=== PATIENT | female | born 1965 | race Caucasian/White ===

== ENCOUNTER 2017-06-19 02:00 | Inpatient (IN) | payer OTHER ==
[2017-06-19] VITALS (11 sets, daily range): BP systolic 130–145; BP diastolic 60–67; PULSE 80–126; RESP 11–19; TEMP 97.6–98.7; O2SAT 99–100
[~2017-06-19] VITALS: Ht 175.3 cm; Wt 64.5 kg
[2017-06-19] MEDS: DEXT 5%-NACL 0.9% 1000 ML INJ 1,000 ML IV SCH ×4 (02:47→17:06)
[2017-06-19] MEDS ORDERED: SODIUM PHOSPHATE INJ 15 MMOL in SODIUM CHLORIDE 0.9% INJ 100 ML IV PRN (03:00)
[2017-06-19] MEDS ORDERED: POTASSIUM CHLOR 20 MEQ PREMIX 100 ML IV PRN ×6 (03:00)
[2017-06-19] MEDS ORDERED: MISCELLANEOUS NURSING INFORMATION XX SCH (03:00)
[2017-06-19] MEDS ORDERED: INSULIN REGULAR (IV INFUSION) 100 UNITS in SODIUM CHLORIDE 0.9% INJ 99 ML IV PRN ×3 (03:00→18:15)
[2017-06-19] MEDS ORDERED: BISACODYL 10 MG SUPP RECTAL PRN (03:00)
[2017-06-19] MEDS ORDERED: SENNOSIDES 8.6 MG TAB PO PRN (03:00)
[2017-06-19] MEDS ORDERED: SODIUM BICARBONATE 8.4% SOLN 50 MEQ/50 ML VIAL IV PUSH PRN ×2 (03:00)
[2017-06-19] MEDS ORDERED: LACTULOSE SYRUP 20 GM/30 ML CUP PO PRN (03:00)
[2017-06-19] MEDS ORDERED: INSULIN HUMAN REGULAR 1,000 UNITS/10 ML VIAL IV PUSH ONE (03:00)
[2017-06-19] MEDS ORDERED: RESP: ALBUTEROL 2.5 MG/IPRATROPIUM 0.5 MG NEB (PRN) INH (03:00)
[2017-06-19] MEDS ORDERED: TEMAZEPAM 15 MG CAP PO PRN (03:00)
[2017-06-19] MEDS ORDERED: ACETAMINOPHEN 325 MG TAB PO PRN (03:00)
[2017-06-19] MEDS ORDERED: CHLORHEXIDINE GLUCONATE 2 % 1 PACK (2 CLOTHS) TOP PRN (03:00)
[2017-06-19] MEDS ORDERED: POTASSIUM CHLOR 40 MEQ PREMIX 100 ML IV PRN ×2 (03:00)
[2017-06-19] MEDS ORDERED: MAGNESIUM HYDROXIDE SUSP 30 ML CUP PO PRN (03:00)
[2017-06-19] MEDS: SODIUM CHLOR 0.9% 1000 ML INJ 1,000 ML IV SCH ×4 (03:07→14:47)
[2017-06-19] MEDS ORDERED: MORPHINE SULFATE 2 MG/ML INJ IV PUSH PRN (03:15)
[2017-06-19] MEDS: CHLORHEXIDINE GLUCONATE 2 % 1 PACK (2 CLOTHS) TOP SCH (04:00)
[2017-06-19 04:07] LABS: AUTOMATED NEUTROPHIL # 14.8 TH/MM3 (1.8-7.7); BASOPHIL % 0.2 % (0.0-2.0); HEMOGLOBIN 15.8 GM/DL (11.6-15.3); LYMPHOCYTE # 0.8 TH/MM3 (1.0-4.8); MEAN CELL VOLUME 95.6 FL (80.0-100.0); MEAN CORPUSCULAR HEMOGLOBIN 29.7 PG (27.0-34.0); MEAN CORPUSCULAR HGB CONC 31.1 % (32.0-36.0); MEAN PLATELET VOLUME 7.8 FL (7.0-11.0); MONO % 5.4 % (0.0-8.0); MONOCYTE # 0.9 TH/MM3 (0-0.9); NEUT % 89.4 % (16.0-70.0); PLATELET COUNT 307 TH/MM3 (150-450); RED BLOOD COUNT 5.33 MIL/MM3 (4.00-5.30); RED CELL DISTRIBUTION WIDTH 14.7 % (11.6-17.2); WHITE BLOOD COUNT 16.6 TH/MM3 (4.0-11.0)
[2017-06-19] MEDS ORDERED: hydrALAZINE HCL 20 MG/ML VIAL IV PUSH PRN (04:30)
--- NOTE | 2017-06-19 04:32 | HHI.HP ---
HPI Service Critical Care Medicine Primary Care Physician No Primary Care Physician Admission Diagnosis Diagnosis: Travel History International Travel<30 Days: No Contact w/Intl Traveler <30 Da: No Traveled to Known Affected Are: No History of Present Illness 52-year-old female with a insulin-dependent type 2 diabetes mellitus for 25 years, she ran out all her insulin few days ago and presents with the three-day history of vomiting nausea and poor appetite. Patient states she has not taken any insulin since vomiting and nausea began the day after her insulin ran out. She thought she had the flu and she has no history of prior DKA. Denies any other recent illness or fever, admits mild subjective dyspnea but denies any chest pain as well as any other symptoms of infection. Review of Systems Constitutional: COMPLAINS OF: Fatigue, Change in appetite, DENIES: Diaphoretic episodes, Fever, Weight gain, Weight loss, Chills, Dizziness, Night Sweats Endocrine: DENIES: Abnorml menstrual pattern, Heat/cold intolerance, Polydipsia , Polyuria, Polyphagia Eyes: DENIES: Blurred vision, Diplopia, Eye inflammation, Eye pain, Vision loss , Photosensitivity, Double Vision Ears, nose, mouth, throat: DENIES: Tinnitus, Hearing loss, Vertigo, Nasal discharge, Oral lesions, Throat pain, Hoarseness, Ear Pain, Running Nose, Epistaxis, Sinus Pain, Toothache, Odynophagia Respiratory: COMPLAINS OF: Shortness of breath, DENIES: Apneas, Cough, Snoring , Wheezing, Hemoptysis, Sputum production Cardiovascular: DENIES: Chest pain, Palpitations, Syncope, Dyspnea on Exertion , PND, Lower Extremity Edema, Orthopnea, Claudication Gastrointestinal: COMPLAINS OF: Abdominal pain, Nausea, Vomiting, Anorexia, DENIES: Black stools, Bloody stools, Constipation, Diarrhea, Difficulty Swallowing Genitourinary: DENIES: Abnormal vaginal bleeding, Dysmenorrhea, Dyspareunia, Sexual dysfunction, Urinary frequency, Urinary incontinence, Urgency, Hematuria , Dysuria, Nocturia, Vaginal discharge Musculoskeletal: DENIES: Joint pain, Muscle aches, Stiffness, Joint Swelling, Back pain, Neck pain Integumentary: DENIES: Abnormal pigmentation, Pruritus, Rash, Nail changes, Breast masses, Breast skin changes, Nipple discharge Hematologic/lymphatic: DENIES: Bruising, Lymphadenopathy Immunologic/allergic: DENIES: Eczema, Urticaria Neurologic: DENIES: Abnormal gait, Headache, Localized weakness, Paresthesias, Seizures, Speech Problems, Tremor, Poor Balance Psychiatric: DENIES: Anxiety, Confusion, Mood changes, Depression, Hallucinations, Agitation, Suicidal Ideation, Homicidal Ideation, Delusions Past Family Social History Allergies: Coded Allergies: No Known Allergies (Unverified , 06/18/17) Past Medical History Asthma: Yes Diabetes: Yes Hypertension: Yes Past Surgical History None Active Ordered Medications Current Medications Medications (Trade) Dose Ordered Sig/Tamie Route PRN Reason Start Time Stop Time Status Last Admin Dose Admin Sodium Chloride 1,000 ml @ 250 mls/hr Q4H IV 06/19/17 02:47 06/19/17 03:07 Dextrose/Sodium Chloride 1,000 ml @ 200 mls/hr Q5H IV 06/19/17 02:47 Potassium Chloride 100 ml @ 100 mls/hr Q1H PRN IV SEE LABEL COMMENTS 06/19/17 03:00 Potassium Chloride 100 ml @ 50 mls/hr Q2H PRN IV SEE LABEL COMMENTS 06/19/17 03:00 Potassium Chloride 100 ml @ 100 mls/hr Q1H PRN IV SEE LABEL COMMENTS 06/19/17 03:00 Potassium Chloride 100 ml @ 100 mls/hr Q1H PRN IV SEE LABEL COMMENTS 06/19/17 03:00 Potassium Chloride 100 ml @ 50 mls/hr Q2H PRN IV SEE LABEL COMMENTS 06/19/17 03:00 Potassium Chloride 100 ml @ 50 mls/hr Q2H PRN IV SEE LABEL COMMENTS 06/19/17 03:00 Potassium Chloride 100 ml @ 50 mls/hr Q2H PRN IV SEE LABEL COMMENTS 06/19/17 03:00 Potassium Chloride 100 ml @ 50 mls/hr Q2H PRN IV SEE LABEL COMMENTS 06/19/17 03:00 Sodium Bicarbonate (Sodium Bicarbonate 8.4% Inj) 100 meq UNSCH PRN IV PUSH SEE LABEL COMMENTS 06/19/17 03:00 Sodium Bicarbonate (Sodium Bicarbonate 8.4% Inj) 50 meq UNSCH PRN IV PUSH SEE LABEL COMMENTS 06/19/17 03:00 Sodium Phosphate 15 mmol/Sodium Chloride 105 ml @ 25 mls/hr UNSCH PRN IV SEE LABEL COMMENTS 06/19/17 03:00 Miscellaneous Information 1 Q361D XX 06/19/17 03:00 06/19/17 03:00 Chlorhexidine Gluconate (Chlorhexidine 2% Cloth) 3 pack Taper DAILY@04 TOP 06/19/17 04:00 06/15/18 03:59 06/19/17 04:00 Chlorhexidine Gluconate (Chlorhexidine 2% Cloth) 3 pack UNSCH PRN TOP HYGIENIC CARE 06/19/17 03:00 Acetaminophen (Tylenol) 650 mg Q6H PRN PO PAIN 1-5 AND/OR FEVER >101F 06/19/17 03:00 Morphine Sulfate (Morphine Inj) 2 mg Q2H PRN IV PUSH PAIN SCALE 6 TO 10 06/19/17 03:15 06/19/17 03:12 Famotidine (Pepcid Inj) 20 mg Q12HR IV PUSH 06/19/17 09:00 Temazepam (Restoril) 15 mg HS PRN PO INSOMNIA 06/19/17 03:00 Albuterol/ Ipratropium (Duoneb Neb) 1 ampule Q2HR NEB PRN INH WHEEZING 06/19/17 03:00 Heparin Sodium (Porcine) (Heparin Inj) 5,000 units Q8H SQ 06/19/17 05:00 Senna/Docusate Sodium (Rachel-Colace) 1 tab BID PO 06/19/17 09:00 Magnesium Hydroxide (Milk Of Magnesia Liq) 30 ml Q12H PRN PO Mild constipation 06/19/17 03:00 Sennosides (Senokot) 17.2 mg Q12H PRN PO Moderate constipation 06/19/17 03:00 Bisacodyl (Dulcolax Supp) 10 mg DAILY PRN RECTAL SEVERE CONSITIPATION 06/19/17 03:00 Lactulose (Lactulose Liq) 30 ml DAILY PRN PO SEVERE CONSITIPATION 06/19/17 03:00 Insulin Human Regular 100 units/ Sodium Chloride 100 ml @ 6.45 mls/hr TITRATE PRN IV Blood Glucose Control 06/19/17 03:30 06/19/17 04:02 Family History No family history of early coronary artery disease Social History Denies alcohol, tobacco, or illicit drug abuse Physical Exam Vital Signs Vital Signs Date Time Temp Pulse Resp B/P (MAP) Pulse Ox O2 Delivery O2 Flow Rate FiO2 06/19/17 02:10 122 Physical Exam GENERAL: Middle-aged adult female in mild acute distress rate with respiratory rate at 30s, lethargic SKIN: Warm and dry. HEAD: Atraumatic. Normocephalic. EYES: Pupils equal and round. No scleral icterus. No injection or drainage. ENT: No nasal bleeding or discharge. . Membranes dry NECK: Trachea midline. No JVD. CARDIOVASCULAR: Regular rate and rhythm. Tachycardic RESPIRATORY: No accessory muscle use. Clear to auscultation. Breath sounds equal bilaterally. Tachypnea GASTROINTESTINAL: Abdomen soft, non-tender, nondistended. Hepatic and splenic margins not palpable. MUSCULOSKELETAL: Extremities without clubbing, cyanosis, or edema. No obvious deformities. NEUROLOGICAL: Awake and alert. No obvious cranial nerve deficits. Motor grossly within normal limits. Five out of 5 muscle strength in the arms and legs. Normal speech. Laboratory Laboratory Tests Test 06/19/17 03:20 White Blood Count 16.6 Red Blood Count 5.33 Hemoglobin 15.8 Hematocrit 51.0 Mean Corpuscular Volume 95.6 Mean Corpuscular Hemoglobin 29.7 Mean Corpuscular Hemoglobin Concent 31.1 Red Cell Distribution Width 14.7 Platelet Count 307 Mean Platelet Volume 7.8 Neutrophils (%) (Auto) 89.4 Lymphocytes (%) (Auto) 5.0 Monocytes (%) (Auto) 5.4 Eosinophils (%) (Auto) 0.0 Basophils (%) (Auto) 0.2 Neutrophils # (Auto) 14.8 Lymphocytes # (Auto) 0.8 Monocytes # (Auto) 0.9 Eosinophils # (Auto) 0.0 Basophils # (Auto) 0.0 CBC Comment DIFF FINAL Differential Comment Result Diagram: 06/19/17 0320 Septic Shock Reassessment Septic shock perfusion: reassessment completed Caprini VTE Risk Assessment Caprini VTE Risk Assessment: Mod/High Risk (score >= 2) Caprini Risk Assessment Model Point Value = 1 Point Value = 2 Point Value = 3 Point Value = 5 Age 41-60 Minor surgery BMI > 25 kg/m2 Swollen legs Varicose veins or History of unexplained or recurrent spontaneous Oral contraceptives or hormone replacement Sepsis (< 1 month) Serious lung disease, including pneumonia (< 1 month) Abnormal pulmonary function Acute myocardial infarction Congestive heart failure (< 1 month) History of inflammatory bowel disease Medical patient at bed rest Age 61-74 Arthroscopic surgery Major open surgery (> 45 min) Laparoscopic surgery (> 45 min) Malignancy Confined to bed (> 72 hours) Immobilizing plaster cast Central venous access Age >= 75 History of VTE Family history of VTE Factor V Leiden Prothrombin [id number] Lupus anticoagulant Anticardiolipin antibodies Elevated serum homocysteine Heparin-induced thrombocytopenia Other congenital or acquired thrombophilia Stroke (< 1 month) Elective arthroplasty Hip, pelvis, or leg fracture Acute spinal cord injury (< 1 month) Prophylaxis Regimen Total Risk Factor Score Risk Level Prophylaxis Regimen 0-1 Low Early ambulation 2 Moderate Order ONE of the following: *Sequential Compression Device (SCD) *Heparin 5000 units SQ BID 3-4 Higher Order ONE of the following medications: *Heparin 5000 units SQ TID *Enoxaparin/Lovenox 40 mg SQ daily (WT < 150 kg, CrCl > 30 mL/min) *Enoxaparin/Lovenox 30 mg SQ daily (WT < 150 kg, CrCl > 10-29 mL/min) *Enoxaparin/Lovenox 30 mg SQ BID (WT < 150 kg, CrCl > 30 mL/min) AND/OR *Sequential Compression Device (SCD) 5 or more Highest Order ONE of the following medications: *Heparin 5000 units SQ TID (Preferred with Epidurals) *Enoxaparin/Lovenox 40 mg SQ daily (WT < 150 kg, CrCl > 30 mL/min) *Enoxaparin/Lovenox 30 mg SQ daily (WT < 150 kg, CrCl > 10-29 mL/min) *Enoxaparin/Lovenox 30 mg SQ BID (WT < 150 kg, CrCl > 30 mL/min) AND *Sequential Compression Device (SCD) Assessment and Plan Assessment and Plan DKA - Insulin drip per protocol - Frequent electrolytes with replacement - IV fluid hydration - Transition to insulin when anion gap closed Hypertension - Resume home meds when by mouth - Hydralazine when necessary to keep SBP less than 160 Asthma - No acute exacerbation - DuoNeb's when necessary DVT GI prophylaxis - Teds SCDs - Subcutaneous heparin - Pepcid Critical Care: The total critical care time was 35 minutes. Time to perform other separately billable procedures was not included in the critical care time. Gallito Levin MD Jun 19, 2017 4:32 am
[2017-06-19 04:59] LABS: ALBUMIN 4.3 GM/DL (3.4-5.0); ALKALINE PHOSPHATASE 91 U/L (45-117); ALT (GPT) 21 U/L (10-53); AST (GOT) 18 U/L (15-37); BLOOD UREA NITROGEN 11 MG/DL (7-18); CALCIUM 8.9 MG/DL (8.5-10.1); CHLORIDE 104 MEQ/L (98-107); CREATININE 0.83 MG/DL (0.50-1.00); GLOMERULAR FILTRATION RATE 72 ML/MIN (>89); MAGNESIUM 1.9 MG/DL (1.5-2.5); PHOSPHORUS 3.2 MG/DL (2.5-4.9); SODIUM (NA) 134 MEQ/L (136-145); TOTAL BILIRUBIN ADULT 0.4 MG/DL (0.2-1.0); TOTAL PROTEIN 8.1 GM/DL (6.4-8.2); TROPONIN I 0.02 NG/ML (0.02-0.05)
[2017-06-19] MEDS: HEPARIN SODIUM - SQ 10,000 UNITS/ML VIAL SQ SCH ×3 (05:14→20:30)
[2017-06-19 05:30] LABS: GLUCOSE,RANDOM 415 MG/DL (74-106)
--- NOTE | 2017-06-19 05:37 | RADRPT ---
EXAM DATE/TIME: 06/19/2017 03:29 [facility] COMPARISON: No previous studies available for comparison. INDICATIONS : Shortness of breath, possible pulmonary disease. MEDICAL HISTORY : Hypertension. Diabetes mellitus type II. Asthma SURGICAL HISTORY : None. ENCOUNTER: Subsequent ACUITY: 1 day PAIN SCORE: 0/10 LOCATION: Bilateral chest FINDINGS: A single view of the chest demonstrates the lungs to be symmetrically aerated without evidence of mas s, infiltrate or effusion. The cardiomediastinal contours are unremarkable. Osseous structures are intact. CONCLUSION: No active disease. No effusion or pneumothorax. Kin Marks MD on June 19, 2017 at 5:32 Board Certified Radiologist. This report was verified electronically.
--- NOTE | 2017-06-19 08:29 | EKG ---
Date Performed: 06/19/2017 Time Performed: 07:15:14 PTAGE: 52 years EKG: Sinus rhythm NORMAL ECG Compared to prior electrocardiogram, rate has decreased DOCTOR: Scot Perkins Interpretating Date/Time 06/19/2017 08:29:02
[2017-06-19] MEDS: DOCUSATE SODIUM 50 MG/SENNA 8.6 MG TAB PO SCH ×2 (08:36→20:30)
[2017-06-19 08:45] LABS: BICARBONATE 9.5 MEQ/L (21.0-32.0); CREATININE 0.74 MG/DL (0.50-1.00); MAGNESIUM 1.9 MG/DL (1.5-2.5); PHOSPHORUS 1.4 MG/DL (2.5-4.9)
[2017-06-19] MEDS ORDERED: FAMOTIDINE 20 MG/2 ML VIAL IV PUSH SCH (09:00)
--- NOTE | 2017-06-19 12:37 | HHI.CCPN ---
Subjective Remarks/Hospital Course 52-year-old female with a insulin-dependent type 2 diabetes mellitus for 25 years, she ran out all her insulin few days ago and presents with the three-day history of vomiting nausea and poor appetite. Patient states she has not taken any insulin since vomiting and nausea began the day after her insulin ran out. She thought she had the flu and she has no history of prior DKA. Denies any other recent illness or fever, admits mild subjective dyspnea but denies any chest pain as well as any other symptoms of infection Subjective 06/19: Afebrile. Complaining of "burning" lower extremity pain likely diabetic neuropathy. Peers consult. No chest pain, short of breath or abdominal pain currently. Objective Vital Signs Date Time Temp Pulse Resp B/P (MAP) Pulse Ox O2 Delivery O2 Flow Rate FiO2 06/19/17 08:00 97 Intake and Output 06/19/17 06/19/17 06/20/17 08:00 16:00 00:00 Intake Total 1000 ml Balance 1000 ml Result Diagram: 06/19/17 0320 06/19/17 0736 Imaging Last Impressions Chest X-Ray 06/19/17 0000 Signed Impressions: Service Date/Time: June 03:29 - CONCLUSION: No active disease. No effusion or pneumothorax. Kin Marks MD Objective Remarks GENERAL: 52-year-old female resting in bed in no acute distress SKIN: Warm and dry. Some bruising pretibial left lower extremity HEAD: Atraumatic. Normocephalic. EYES: Pupils equal and round. No scleral icterus. No injection or drainage. ENT: No nasal bleeding or discharge. . Membranes dry NECK: Trachea midline. No JVD. CARDIOVASCULAR: Regular rate and rhythm. S1, S2 no S4. Without murmur RESPIRATORY: Essentially clear to auscultation bilaterally without wheezing rales or rhonchi GASTROINTESTINAL: Abdomen soft, non-tender, nondistended. Hypoactive bowel sounds are appreciated MUSCULOSKELETAL: Extremities without noted in peripheral edema. No obvious deformities. NEUROLOGICAL: Awake and alert. No obvious cranial nerve deficits. Motor grossly within normal limits. Five out of 5 muscle strength in the arms and legs. Normal speech. A/P Assessment and Plan Neuro/Psych: Diabetic neuropathy Start pregabalin 25 mg every 8 hours Acetaminophen 650 mg by mouth every 4 hours when necessary fever/pain 1-5 Morphine sulfate 2 mg IV every 2 hours when necessary pain 6-10 CV: Elevated troponin 0.06 Hypertension Should start UBALDO inhibitor if tolerates IV fluids per DKA protocol Recheck EKG/troponin a.m. 06/20 Resp: Asthma As needed albuterol nebs every 2 hours. Dyspnea Nasal cannula to maintain saturations greater than or equal to 92% Incentive spirometry while awake GI: Currently nothing by mouth Famotidine for GI prophylaxis Docusate sodium/senna 1 tablet twice a day for bowel regimen : No indication for Pichardo catheter Endo: IDDM DKA Ketoacidosis Currently on insulin drip at 7.5 units an hour. Recheck acetone level at 1300 hrs. today. Transition to subcutaneous insulin if gap is closed. Currently on D5 normal saline at 200 cc an hour Novulog ? 40 units twice a day according to patient is a home medication regimen. Check hemoglobin A1c, lipid panel and UA Renal: Creatinine currently within normal limits Monitor urine output Accurate I's and O's Heme: Leukocytosis Polycythemia Monitor CBC daily. Follow trends. Polycythemia likely secondary to dehydration ID: Monitor for infection. Check UA FEN: Hypophosphatemia Replace electrolytes per ICU electrolyte protocol MSK: Ativan/PT evaluate and treat Access - Utilize peripheral IV. Central line if indicated Prophylaxis - GI - famotidine - DVT - SCD/heparin subcutaneous 15 additional minutes follow-up time Patient is stable from a critical care medicine standpoint. Assign care to hospitalist in a.m. 06/20. Okay to transfer out of ICU. Currently transitioned off insulin drip Dov Green MD Jun 19, 2017 12:37
[2017-06-19] MEDS ORDERED: RESP: ALBUTEROL 2.5 MG/3 ML NEB (PRN) NEB (12:45)
[2017-06-19] MEDS: PREGABALIN 25 MG CAP PO SCH ×2 (14:09→20:29)
[2017-06-19 15:37] LABS: BICARBONATE 16.7 MEQ/L (21.0-32.0); BLOOD UREA NITROGEN 8 MG/DL (7-18); CHLORIDE 114 MEQ/L (98-107); CREATININE 0.67 MG/DL (0.50-1.00); GLOMERULAR FILTRATION RATE 92 ML/MIN (>89); GLUCOSE,RANDOM 160 MG/DL (74-106); MAGNESIUM 1.6 MG/DL (1.5-2.5); SODIUM (NA) 140 MEQ/L (136-145)
[2017-06-19] MEDS ORDERED: GLUCAGON 1 MG/ML VIAL OTHER PRN (17:15)
[2017-06-19] MEDS ORDERED: DEXTROSE 50% IN WATER 50 ML VIAL(D50) IV PUSH PRN (17:15)
[2017-06-19] MEDS ORDERED: DC Insulin drip 2 hrs post basal insulin dose ONE (17:15)
[2017-06-19] MEDS ORDERED: DC previous DKA orders (HMC 1917) ONE (17:15)
[2017-06-19 17:25] LABS: HEMOGLOBIN A1C 15.2 % (4.3-6.0)
[2017-06-19] MEDS: INSULIN DETEMIR 100 UNITS/ML VIAL SQ SCH (18:00)
[2017-06-19 20:07] LABS: BILIRUBIN, URINE NEG (NEG); BLOOD, URINE TRACE (NEG); GLUCOSE,URINE 1000 mg/dL (NEG); KETONE, URINE 40 mg/dL (NEG); MUCUS URINE FEW /lpf (OCC); NITRITE,URINE NEG (NEG); SQUAMOUS EPITHELIAL CELL URINE 1 /hpf (0-5); URINE COLOR YELLOW (YELLW/STRAW); URINE LEUKOCYTE ESTERASE SMALL (NEG)
[2017-06-19 20:26] LABS: BICARBONATE 17.2 MEQ/L (21.0-32.0); CALCIUM 8.6 MG/DL (8.5-10.1); CREATININE 0.58 MG/DL (0.50-1.00); MAGNESIUM 1.7 MG/DL (1.5-2.5); PHOSPHORUS 1.5 MG/DL (2.5-4.9)
[2017-06-19] MEDS: FAMOTIDINE 20 MG TAB PO SCH (20:29)
[2017-06-19] MEDS: INSULIN ASPART SUPPLEMENTAL SCALE SQ SCH (20:30)
[2017-06-19] MEDS ORDERED: POTASSIUM CHLORIDE 25 MEQ EFFERVESCENT TAB PO ONE (21:30)
[2017-06-20] VITALS (9 sets, daily range): BP systolic 117–142; BP diastolic 62–80; PULSE 79–97; RESP 16–18; TEMP 96.8–98.3; O2SAT 95–100
[2017-06-20] MEDS: CHLORHEXIDINE GLUCONATE 2 % 1 PACK (2 CLOTHS) TOP SCH (03:02)
[2017-06-20] MEDS: HEPARIN SODIUM - SQ 10,000 UNITS/ML VIAL SQ SCH ×3 (05:11→20:35)
[2017-06-20] MEDS: INSULIN DETEMIR 100 UNITS/ML VIAL SQ SCH ×2 (05:11→18:07)
[2017-06-20 05:47] LABS: AUTOMATED NEUTROPHIL # 4.9 TH/MM3 (1.8-7.7); BASOPHIL # 0.1 TH/MM3 (0-0.2); EOSINOPHIL % 0.4 % (0.0-4.0); HEMATOCRIT 41.3 % (35.0-46.0); HEMOGLOBIN 13.6 GM/DL (11.6-15.3); LYMPH % 28.1 % (9.0-44.0); LYMPHOCYTE # 2.2 TH/MM3 (1.0-4.8); MEAN CELL VOLUME 91.1 FL (80.0-100.0); MEAN PLATELET VOLUME 7.8 FL (7.0-11.0); MONO % 7.2 % (0.0-8.0); MONOCYTE # 0.6 TH/MM3 (0-0.9); NEUT % 63.3 % (16.0-70.0); PLATELET COUNT 243 TH/MM3 (150-450); RED BLOOD COUNT 4.53 MIL/MM3 (4.00-5.30); WHITE BLOOD COUNT 7.8 TH/MM3 (4.0-11.0)
[2017-06-20] MEDS: PREGABALIN 25 MG CAP PO SCH ×3 (05:59→20:35)
[2017-06-20 06:15] LABS: BICARBONATE 14.7 MEQ/L (21.0-32.0); BLOOD UREA NITROGEN 8 MG/DL (7-18); CALCIUM 8.9 MG/DL (8.5-10.1); CHLORIDE 107 MEQ/L (98-107); CREATININE 0.57 MG/DL (0.50-1.00); GLUCOSE,RANDOM 282 MG/DL (74-106); MAGNESIUM 1.9 MG/DL (1.5-2.5); SODIUM (NA) 136 MEQ/L (136-145)
[2017-06-20 06:17] LABS: CHOLESTEROL 188 MG/DL (120-200); PHOSPHORUS 1.5 MG/DL (2.5-4.9); TRIGLYCERIDES 220 MG/DL (42-150)
[2017-06-20 06:21] LABS: HDL CHOLESTEROL 48.2 MG/DL (40.0-60.0); LDL CHOLESTEROL 96 MG/DL (0-99); TROPONIN I 0.03 NG/ML (0.02-0.05)
[2017-06-20] MEDS: FAMOTIDINE 20 MG TAB PO SCH ×2 (08:42→20:35)
[2017-06-20] MEDS: INSULIN ASPART SUPPLEMENTAL SCALE SQ SCH ×4 (08:42→20:35)
[2017-06-20] MEDS: DOCUSATE SODIUM 50 MG/SENNA 8.6 MG TAB PO SCH ×2 (08:42→20:35)
[2017-06-20] MEDS: INSULIN ASPART 1,000 UNITS/10 ML VIAL SQ SCH ×3 (08:42→17:13)
[2017-06-20] MEDS ORDERED: POTASSIUM CHLORIDE 20 MEQ PWD PACKET PO ONE (09:15)
--- NOTE | 2017-06-20 14:32 | HHI.PR ---
Subjective Remarks No acute distress. Patient complains of no abdominal pain. Lipase is elevated above 3000. Patient is out of DKA but blood sugars have remained high and anion gap has been increasing since cessation of IV insulin. Further adjustments in insulins are needed for better control. Objective Vital Signs Date Time Temp Pulse Resp B/P (MAP) Pulse Ox O2 Delivery O2 Flow Rate FiO2 06/20/17 09:32 96 06/20/17 08:00 97.7 81 18 137/76 (96) 100 06/20/17 04:20 96.8 94 17 117/62 (80) 95 06/20/17 01:20 97.4 84 18 142/66 (91) 99 06/20/17 00:00 97 06/20/17 00:00 98.3 97 16 129/64 (85) 100 06/19/17 22:00 93 06/19/17 20:00 98.4 97 19 145/67 (93) 100 06/19/17 20:00 97 06/19/17 20:00 100 21 06/19/17 16:22 19 06/19/17 16:00 98.7 80 12 130/60 (83) 100 06/19/17 16:00 80 I/O 06/19/17 06/19/17 06/19/17 06/20/17 06/20/17 06/20/17 07:00 15:00 23:00 07:00 15:00 23:00 Intake Total 1000 ml 2052 ml 360 ml Output Total 500 ml Balance 1000 ml 1552 ml 360 ml Intake Oral 360 ml IV Total 1000 ml 2052 ml Output Urine Total 500 ml # Voids 2 2 1 # Bowel Movements 1 0 Result Diagram: 06/20/17 0447 06/20/17 0447 Objective Remarks GENERAL: NAD, A&Ox3 HEAD: Normocephalic. NECK: Supple, trachea midline. No lymphadenopathy. EYES: No scleral icterus. No injection or drainage. CARDIOVASCULAR: Regular rate and rhythm without murmurs, gallops, or rubs. RESPIRATORY: Breath sounds equal bilaterally. No accessory muscle use. GASTROINTESTINAL: Abdomen soft, non-tender, nondistended. MUSCULOSKELETAL: No cyanosis, or edema. SKIN: Warm and dry. NEURO: No focal neurological deficitis. A/P Problem List: (1) DKA (diabetic ketoacidoses) ICD Code: E13.10 - Other specified diabetes mellitus with ketoacidosis without coma (2) Pancreatitis ICD Code: K85.90 - Acute pancreatitis without necrosis or infection, unspecified (3) Hypokalemia ICD Code: E87.6 - Hypokalemia Assessment and Plan 52-year-old female admitted secondary to DKA DKA Type 1 diabetes mellitus Continue to monitor blood sugars Continue to monitor anion gap Transition back to home dosings of insulin Adjust insulin as needed Pancreatitis Follow lipase Currently patient is asymptomatic Hypokalemia Hypophosphatemia Replace and monitor till stable Etiology is likely related to insulin administration Hypertension Blood pressure stable on present treatment Follow blood pressures Asthma Continue as needed albuterol Incentive spirometry Monitor clinically for any exacerbation DVT prophylaxis Heparin Shad Fields MD Jun 20, 2017 14:32
[2017-06-20 14:53] LABS: HEMOGLOBIN A1C 14.8 % (4.3-6.0)
[2017-06-21] VITALS: BP 116/70; PULSE 99; RESP 18; TEMP 97.6; O2SAT 94
[2017-06-21] MEDS: CHLORHEXIDINE GLUCONATE 2 % 1 PACK (2 CLOTHS) TOP SCH (04:00)
[2017-06-21] MEDS: HEPARIN SODIUM - SQ 10,000 UNITS/ML VIAL SQ SCH ×2 (05:24→13:00)
[2017-06-21] MEDS: PREGABALIN 25 MG CAP PO SCH ×2 (05:24→13:00)
[2017-06-21] MEDS: INSULIN DETEMIR 100 UNITS/ML VIAL SQ SCH ×2 (06:00→08:29)
[2017-06-21 06:10] LABS: AUTOMATED NEUTROPHIL # 2.6 TH/MM3 (1.8-7.7); BASOPHIL % 0.7 % (0.0-2.0); EOSINOPHIL # 0.2 TH/MM3 (0-0.4); EOSINOPHIL % 3.5 % (0.0-4.0); HEMATOCRIT 38.3 % (35.0-46.0); HEMOGLOBIN 13.3 GM/DL (11.6-15.3); LYMPHOCYTE # 2.4 TH/MM3 (1.0-4.8); MEAN CELL VOLUME 88.8 FL (80.0-100.0); MEAN CORPUSCULAR HEMOGLOBIN 30.7 PG (27.0-34.0); MEAN CORPUSCULAR HGB CONC 34.6 % (32.0-36.0); MEAN PLATELET VOLUME 7.4 FL (7.0-11.0); MONO % 9.5 % (0.0-8.0); MONOCYTE # 0.5 TH/MM3 (0-0.9); NEUT % 45.3 % (16.0-70.0); PLATELET COUNT 236 TH/MM3 (150-450); RED BLOOD COUNT 4.32 MIL/MM3 (4.00-5.30); RED CELL DISTRIBUTION WIDTH 14.1 % (11.6-17.2); WHITE BLOOD COUNT 5.8 TH/MM3 (4.0-11.0)
[2017-06-21 06:39] LABS: ALBUMIN 2.9 GM/DL (3.4-5.0); BICARBONATE 29.8 MEQ/L (21.0-32.0); BLOOD UREA NITROGEN 8 MG/DL (7-18); CALCIUM 8.7 MG/DL (8.5-10.1); CHLORIDE 105 MEQ/L (98-107); CREATININE 0.45 MG/DL (0.50-1.00); GLOMERULAR FILTRATION RATE 146 ML/MIN (>89); GLUCOSE,RANDOM 92 MG/DL (74-106); MAGNESIUM 1.9 MG/DL (1.5-2.5); SODIUM (NA) 141 MEQ/L (136-145)
[2017-06-21 06:41] LABS: ALT (GPT) 16 U/L (10-53); AST (GOT) 11 U/L (15-37); PHOSPHORUS 2.7 MG/DL (2.5-4.9)
[2017-06-21 06:43] LABS: ALKALINE PHOSPHATASE 56 U/L (45-117); TOTAL BILIRUBIN ADULT 0.3 MG/DL (0.2-1.0); TOTAL PROTEIN 5.9 GM/DL (6.4-8.2)
[2017-06-21 07:53] VITALS: BP 144/78; PULSE 78; RESP 18; TEMP 97.7; O2SAT 98
[2017-06-21] MEDS: INSULIN ASPART 1,000 UNITS/10 ML VIAL SQ SCH ×2 (08:00→12:00)
[2017-06-21] MEDS: FAMOTIDINE 20 MG TAB PO SCH (08:00)
[2017-06-21] MEDS: DOCUSATE SODIUM 50 MG/SENNA 8.6 MG TAB PO SCH (08:00)
[2017-06-21] MEDS: INSULIN ASPART SUPPLEMENTAL SCALE SQ SCH ×2 (08:00→12:00)
[2017-06-21 11:16] VITALS: BP 136/66; PULSE 84; RESP 18; TEMP 96.9; O2SAT 98
--- NOTE | 2017-06-21 11:23 | HHI.PR ---
Subjective Remarks Patient seen and examined this morning. Temperature 96.9, pulse 84, respiratory rate 18, blood pressure 136/66, pulse ox 98 on room air. Patient reports that she is back to baseline. She states that she was unable to get her insulin due to funds and lack of refills. That is the cause of her DKA. At this time she wishes to get out of the hospital. She agrees to obtaining her insulin upon leaving the hospital. Objective Vitals Vital Signs Date Time Temp Pulse Resp B/P (MAP) Pulse Ox O2 Delivery O2 Flow Rate FiO2 06/21/17 11:16 96.9 84 18 136/66 (89) 98 06/21/17 09:02 16 06/21/17 07:53 97.7 78 18 144/78 (100) 98 06/21/17 00:00 97.6 99 18 116/70 (85) 94 06/20/17 21:35 18 06/20/17 20:00 97.7 92 17 135/71 (92) 97 06/20/17 17:36 96 21 06/20/17 16:00 97.7 79 18 140/75 (96) 100 06/20/17 12:00 97.3 80 17 132/80 (97) 100 I/O 06/20/17 06/20/17 06/20/17 06/21/17 06/21/17 06/21/17 07:00 15:00 23:00 07:00 15:00 23:00 Intake Total 360 ml 500 ml 720 ml 480 ml Balance 360 ml 500 ml 720 ml 480 ml Intake Oral 360 ml 500 ml 720 ml 480 ml # Voids 1 4 2 1 # Bowel Movements 0 Result Diagram: 06/21/17 0525 06/21/17 0525 Imaging Last Impressions Chest X-Ray 06/19/17 0000 Signed Impressions: Service Date/Time: June 03:29 - CONCLUSION: No active disease. No effusion or pneumothorax. Kin Marks MD Objective Remarks GEN: Well-developed, well-nourished patient. No acute distress. CV: Regular rate and rhythm without obvious murmurs LUNGS: Clear to auscultation bilaterally. Normal respiratory effort. No wheezes , rales, rhonchi. GI: Soft, nontender, nondistended. No palpable masses. Bowel sounds WNL. EXT: No edema. NEURO/PSYCH: Afocal. Awake, alert, and oriented x3. Appropriate insight and judgment. Medications and IVs Current Medications Medications (Trade) Dose Ordered Sig/Tamie Route Start Time Stop Time Status Last Admin Miscellaneous Information 1 Q361D XX 06/19/17 03:00 06/19/17 03:00 (Chlorhexidine 2% Cloth) 3 pack Taper DAILY@04 TOP 06/19/17 04:00 06/15/18 03:59 06/19/17 04:00 (Chlorhexidine 2% Cloth) 3 pack UNSCH PRN TOP 06/19/17 03:00 (Tylenol) 650 mg Q6H PRN PO 06/19/17 03:00 06/21/17 08:00 (Morphine Inj) 2 mg Q2H PRN IV PUSH 06/19/17 03:15 06/19/17 03:12 (Restoril) 15 mg HS PRN PO 06/19/17 03:00 (Heparin Inj) 5,000 units Q8H SQ 06/19/17 05:00 06/21/17 05:24 (Rachel-Colace) 1 tab BID PO 06/19/17 09:00 06/21/17 08:00 (Milk Of Magnesia Liq) 30 ml Q12H PRN PO 06/19/17 03:00 (Senokot) 17.2 mg Q12H PRN PO 06/19/17 03:00 (Dulcolax Supp) 10 mg DAILY PRN RECTAL 06/19/17 03:00 (Lactulose Liq) 30 ml DAILY PRN PO 06/19/17 03:00 (Apresoline Inj) 20 mg Q4H PRN IV PUSH 06/19/17 04:30 (Lyrica) 25 mg Q8HR PO 06/19/17 14:00 06/21/17 05:24 (Pepcid) 20 mg BID PO 06/19/17 21:00 06/21/17 08:00 (Albuterol Neb) 2.5 mg Q2HR NEB PRN NEB 06/19/17 12:45 (NovoLOG INJ) 5 units TIDAC SQ 06/20/17 08:00 06/21/17 08:00 (NovoLOG SUPPLEMENTAL SCALE) 1 ACHS SLIDING SCALE SQ 2/1/18 21:00 06/21/17 08:00 (D50w (Vial) Inj) 50 ml UNSCH PRN IV PUSH 06/19/17 17:15 (Glucagon Inj) 1 mg UNSCH PRN OTHER 06/19/17 17:15 (Levemir Inj) 15 units Q12H SQ 06/21/17 18:00 A/P Problem List: (1) DKA (diabetic ketoacidoses) ICD Code: E13.10 - Other specified diabetes mellitus with ketoacidosis without coma (2) Hypokalemia ICD Code: E87.6 - Hypokalemia (3) Pancreatitis ICD Code: K85.90 - Acute pancreatitis without necrosis or infection, unspecified Assessment and Plan 52-year-old female admitted secondary to DKA DKA Type 1 diabetes mellitus Continue to monitor blood sugars Continue to monitor anion gap Transition back to home dosings of insulin Adjust insulin as needed Pancreatitis Follow lipase: trending down Currently patient is asymptomatic Hypokalemia Hypophosphatemia Replace and monitor currently stable Etiology is likely related to insulin administration Hypertension Blood pressure stable on present treatment Follow blood pressures Asthma Continue as needed albuterol Incentive spirometry Monitor clinically for any exacerbation DVT prophylaxis Heparin Discharge Planning Discharge home today on her insulin. Will repeat BMP as an out patient Donte Franklin MD, R3 Jun 21, 2017 11:23
--- NOTE | 2017-06-21 11:25 | HHI.DS ---
Discharge Summary Admission Date Jun 19, 2017 at 02:10 Discharge Date: Jun 21, 2017 Admitting Diagnosis DKA (1) Hypokalemia ICD Codes: E87.6 - Hypokalemia (2) DKA (diabetic ketoacidoses) ICD Codes: E13.10 - Other specified diabetes mellitus with ketoacidosis without coma (3) Pancreatitis ICD Codes: K85.90 - Acute pancreatitis without necrosis or infection, unspecified CBC/BMP: 06/21/17 0525 06/21/17 0525 Significant Findings Laboratory Tests Test 06/19/17 02:17 06/19/17 03:20 06/19/17 07:36 06/19/17 10:20 White Blood Count 16.6 TH/MM3 (4.0-11.0) Red Blood Count 5.33 MIL/MM3 (4.00-5.30) Hemoglobin 15.8 GM/DL (11.6-15.3) Hematocrit 51.0 % (35.0-46.0) Mean Corpuscular Hemoglobin Concent 31.1 % (32.0-36.0) Neutrophils (%) (Auto) 89.4 % (16.0-70.0) Lymphocytes (%) (Auto) 5.0 % (9.0-44.0) Neutrophils # (Auto) 14.8 TH/MM3 (1.8-7.7) Lymphocytes # (Auto) 0.8 TH/MM3 (1.0-4.8) Random Glucose 415 MG/DL (74-106) 261 MG/DL (74-106) Sodium Level 134 MEQ/L (136-145) Carbon Dioxide Level 6.0 MEQ/L (21.0-32.0) 9.5 MEQ/L (21.0-32.0) Anion Gap 24 MEQ/L (5-15) 18 MEQ/L (5-15) Estimat Glomerular Filtration Rate 72 ML/MIN (>89) 82 ML/MIN (>89) Lipase 1469 U/L (73-393) B-Hydroxybutyrate 9.75 MMOL/L (0.00-0.39) Calcium Level 8.0 MG/DL (8.5-10.1) Phosphorus Level 1.4 MG/DL (2.5-4.9) Chloride Level 110 MEQ/L (98-107) Troponin I 0.06 NG/ML (0.02-0.05) Test 06/19/17 14:35 06/19/17 18:30 06/19/17 19:42 06/20/17 04:47 Random Glucose 160 MG/DL (74-106) 200 MG/DL (74-106) 282 MG/DL (74-106) Calcium Level 8.0 MG/DL (8.5-10.1) Phosphorus Level 1.0 MG/DL (2.5-4.9) 1.5 MG/DL (2.5-4.9) 1.5 MG/DL (2.5-4.9) Potassium Level 3.1 MEQ/L (3.5-5.1) 2.9 MEQ/L (3.5-5.1) 3.2 MEQ/L (3.5-5.1) Chloride Level 114 MEQ/L (98-107) 110 MEQ/L (98-107) Carbon Dioxide Level 16.7 MEQ/L (21.0-32.0) 17.2 MEQ/L (21.0-32.0) 14.7 MEQ/L (21.0-32.0) Hemoglobin A1c 15.2 % (4.3-6.0) 14.8 % (4.3-6.0) B-Hydroxybutyrate 0.73 MMOL/L (0.00-0.39) Urine Protein 30 mg/dL (NEG-TRACE) Urine Glucose (UA) 1000 mg/dL (NEG) Urine Ketones 40 mg/dL (NEG) Urine Occult Blood TRACE (NEG) Urine Leukocyte Esterase SMALL (NEG) Urine WBC 9 /hpf (0-5) Urine Mucus FEW /lpf (OCC) Blood Urea Nitrogen 6 MG/DL (7-18) Triglycerides Level 220 MG/DL (42-150) Lipase 3395 U/L (73-393) Test 06/21/17 05:25 Monocytes (%) (Auto) 9.5 % (0.0-8.0) Creatinine 0.45 MG/DL (0.50-1.00) Total Protein 5.9 GM/DL (6.4-8.2) Albumin 2.9 GM/DL (3.4-5.0) Aspartate Amino Transf (AST/SGOT) 11 U/L (15-37) Potassium Level 3.2 MEQ/L (3.5-5.1) Lipase 1233 U/L (73-393) Imaging Last Impressions Chest X-Ray 06/19/17 0000 Signed Impressions: Service Date/Time: June 03:29 - CONCLUSION: No active disease. No effusion or pneumothorax. Kin Marks MD Hospital Course Admitted on 06/19/17 for DKA. Her DKA has resolved since being in the hospital. Adjusted her insulin regimen. She had signs of pancreatitis by elevated lipase however was asymptomatic during hospitalization. On 06/21/17 she was determined to be stable for discharge. Provided prescription with refills for her insulin. Strongly encouraged patient to follow-up with her primary care physician. Pt Condition on Discharge: Stable Discharge Disposition: Discharge Home Discharge Instructions DIET: Follow Instructions for: Diabetic Diet Activities you can perform: Regular-No Restrictions Follow up Referrals: PCP Follow-up - 1 Week New Orders: COMP MET PROF (CMP) - 2-3 Days New Medications: Insulin Aspart Inj (Novolog Inj) 1,000 Unit/10 Ml Vial 5 UNITS SQ TIDAC, #1 INJECTION 3 Refills Insulin Detemir Inj (Levemir Inj) 1,000 unit/ 10 ML Vial 15 UNITS SQ Q12H, #1 INJECTION 3 Refills Do not mix with any other Insulin. Donte Franklin MD, R3 Jun 21, 2017 11:25
[2017-06-21] MEDS ORDERED: POTASSIUM CHLORIDE 10 MEQ CONTROLLED RELEASE TAB PO ONE (11:30)
[2017-06-21] MEDS ORDERED: LEVEMIR SQ (11:46)
[2017-06-21] MEDS ORDERED: NOVOLOGP2 SQ (11:46)
--- NOTE | 2017-06-21 11:49 | HHI.DCPOC ---
Discharge Care Plan Diagnosis: (1) Hypokalemia (2) Pancreatitis (3) DKA (diabetic ketoacidoses) Goals to Promote Your Health * To prevent worsening of your condition and complications * To maintain your health at the optimal level Directions to Meet Your Goals Take your medications as prescribed Follow your dietary instruction Follow activity as directed Keep your appointments as scheduled Take your immunizations and boosters as scheduled If your symptoms worsen call your PCP, if no PCP go to Urgent Care Center or Emergency Room Smoking is Dangerous to Your Health. Avoid second hand smoke Call the 24-hour hour crisis hotline for domestic abuse at Donte Franklin MD, R3 Jun 21, 2017 11:49
[2017-06-21] MEDS ORDERED: INSULIN DETEMIR 100 UNITS/ML VIAL SQ SCH (18:00)
== END 2017-06-21 14:16 | disposition home or self-care (01) | DRG 639 ==
LOC: NEDDLT 02:00 → HIMW 02:10 → N06A 06-20 00:51
PROVIDERS: ADMIT Hospitalist; ATTEND Hospitalist
DX: E10.10 Type 1 diabetes mellitus with ketoacidosis without coma (principal); E10.42 Type 1 diabetes mellitus with diabetic polyneuropathy; E83.39 Other disorders of phosphorus metabolism; D75.1 Secondary polycythemia; E86.0 Dehydration; I10 Essential (primary) hypertension; J45.909 Unspecified asthma, uncomplicated; E87.6 Hypokalemia; R11.2 Nausea with vomiting, unspecified; Z79.4 Long term (current) use of insulin
CPT/HCPCS: 71045; 76937; 80048; 80053; 80061; 81001; 82010; 82948; 83036; 83690; 83735; 84100; 84484; 85025; 87086; 87641; 93005; 94150; J1644; J1815; J1817; J2270; J7030; J7042